=== PATIENT | male | born 1990 | race American Indian/Alaskan Native ===

== ENCOUNTER 2018-05-23 22:09 | Emergency (ER) | payer MEDICAID ==
[2018-05-23 23:32] LABS: Basophils # (Auto) 0.1 K/mm3 (0.0-0.1); Basophils % (Auto) 1.1 % (0.0-1.8); Eosinophils # (Auto) 0.3 K/mm3 (0.0-0.4); Eosinophils % (Auto) 3.9 % (0.0-4.3); Hematocrit 30.8 % (35.5-45.6); Lymphocytes % (Auto) 37.9 % (13.4-35.0); Mean Corpuscular HGB Conc 36 % (32-34); Mean Corpuscular Volume 91 fl (84-94); Monocytes # (Auto) 0.5 K/mm3 (0.0-0.8); Platelet Count 329 K/mm3 (140-440); Red Blood Count 3.41 M/mm3 (3.65-5.03)
[2018-05-23 23:40] LABS: BUN/Creatinine Ratio 20; Blood Urea Nitrogen 14 mg/dL (9-20); Calcium 9.1 mg/dL (8.4-10.2)
[2018-05-23 23:41] LABS: Bilirubin,Urine NEG (Negative); Blood,Urine NEG (Negative); Color,Urine Yellow (Yellow); Mucus,Urine FEW /HPF; Protein,Urine <15 mg/dL mg/dL (Negative); RBC,Urine < 1.0 /HPF (0.0-6.0); WBC,Urine < 1.0 /HPF (0.0-6.0)
[2018-05-23 23:41] LABS: Hemolysis Index 11
--- NOTE | 2018-05-23 23:47 | Emergency Department Report ---
ED Psych HPI - General Chief Complaint: Psych Stated Complaint: LT LEG PAIN MH Time Seen by Provider: 05/23/18 23:37 Source: patient Mode of arrival: Ambulatory - History of Present Illness Initial Comments: Mr. Gonsalves is a 27 yo male who presents via EMS with complaints of leg pain. When questioned by our nursing staff, he admits to SI. According to EMR, he has hx of homelessness, schizophrenia and SI. He gives very limited information to me. MD Complaint: suicidal ideation, feels depressed -: unknown Associated Psychiatric Symptoms: suicidal ideation History of same: Yes Quality: constant Improves With: none Worsens With: none Associated Symptoms: other (leg pain) Treatments Prior to Arrival: none If Self Harm: admits thoughts of - Related Data Home Medications Medication Instructions Recorded Confirmed Last Taken diphenhydrAMINE [Benadryl CAP] 50 mg PO QHS 12/20/12 03/23/15 03/22/15 risperiDONE [RisperDAL] 2 mg PO BID 12/20/12 05/23/18 03/22/15 Montelukast [Singulair] 10 mg PO QPM 04/25/13 05/23/18 03/22/15 traZODone [Desyrel] 50 mg PO QHS 12/09/14 05/23/18 03/22/15 Allergies Allergy/AdvReac Type Severity Reaction Status Date / Time latex Allergy Unknown Verified 12/08/14 21:21 soybean Allergy Hives Verified 03/23/15 23:18 chocolate flavor AdvReac Hives Verified 03/23/15 23:20 fried food Allergy Hives Uncoded 03/23/15 23:20 vegtable oil Allergy Hives Uncoded 03/23/15 23:20 ED Review of Systems ROS: Stated complaint: LT LEG PAIN MH Other details as noted in HPI Comment: Mr. Gonsalves will not answer questions. ED Past Medical Hx - Past Medical History Previous Medical History?: Yes Hx Psychiatric Treatment: Yes (depression, paronoia) Hx Asthma: Yes Additional medical history: schizophrenia, migraine - Surgical History Additional Surgical History: back surgery - Social History Smoking Status: Unknown if ever smoked Substance Use Type: None - Medications Home Medications: Home Medications Medication Instructions Recorded Confirmed Last Taken Type diphenhydrAMINE [Benadryl CAP] 50 mg PO QHS 12/20/12 03/23/15 03/22/15 History risperiDONE [RisperDAL] 2 mg PO BID 12/20/12 05/23/18 03/22/15 History Montelukast [Singulair] 10 mg PO QPM 04/25/13 05/23/18 03/22/15 History traZODone [Desyrel] 50 mg PO QHS 12/09/14 05/23/18 03/22/15 History ED Physical Exam - General Limitations: No Limitations General appearance: alert, in no apparent distress - Head Head exam: Present: atraumatic, normocephalic - Eye Eye exam: Present: normal appearance - ENT ENT exam: Present: mucous membranes moist - Neck Neck exam: Present: normal inspection - Respiratory Respiratory exam: Present: normal lung sounds bilaterally. Absent: respiratory distress, wheezes, rales, rhonchi - Cardiovascular Cardiovascular Exam: Present: regular rate, normal rhythm, normal heart sounds. Absent: systolic murmur, diastolic murmur, rubs, gallop - GI/Abdominal GI/Abdominal exam: Present: soft, normal bowel sounds. Absent: distended, tenderness, guarding, rebound - Rectal Rectal exam: Present: deferred - Extremities Exam Extremities exam: Present: normal inspection - Back Exam Back exam: Present: normal inspection - Neurological Exam Neurological exam: Present: alert, oriented X3 - Psychiatric Psychiatric exam: Present: flat affect, suicidal ideation - Skin Skin exam: Present: warm, dry, intact, normal color. Absent: rash ED Course Vital Signs 05/23/18 22:26 Temperature 98.2 F Pulse Rate 69 Respiratory 18 Rate Blood Pressure 114/74 O2 Sat by Pulse 100 Oximetry ED Medical Decision Making - Lab Data Result diagrams: 05/23/18 22:59 05/23/18 22:59 Laboratory Results - last 24 hr 05/23/18 05/23/18 05/23/18 22:22 22:59 22:59 WBC RBC Hgb Hct MCV MCH MCHC RDW Plt Count Lymph % (Auto) [place] % (Auto) Eos % (Auto) Baso % (Auto) Lymph # [place] # Eos # Baso # Seg Neutrophils % Seg Neutrophils # Sodium Potassium Chloride Carbon Dioxide Anion Gap BUN Creatinine Estimated GFR BUN/Creatinine Ratio Glucose POC Glucose 98 Calcium Urine Bilirubin Urine RBC (Auto) U Epithel Cells (Auto) Salicylates < 0.3 L Acetaminophen < 5.0 L Plasma/Serum Alcohol 05/23/18 05/23/18 05/23/18 22:59 22:59 22:59 WBC 8.0 RBC 3.41 L Hgb 11.0 L Hct 30.8 L MCV 91 MCH 32 MCHC 36 H RDW 13.0 L Plt Count 329 Lymph % (Auto) 37.9 H [place] % (Auto) 6.0 Eos % (Auto) 3.9 Baso % (Auto) 1.1 Lymph # 3.0 [place] # 0.5 Eos # 0.3 Baso # 0.1 Seg Neutrophils % 51.1 Seg Neutrophils # 4.1 Sodium 139 Potassium 3.2 L Chloride 101.8 Carbon Dioxide 25 Anion Gap 15 BUN 14 Creatinine 0.7 L Estimated GFR > 60 BUN/Creatinine Ratio 20 Glucose 106 H POC Glucose Calcium 9.1 Urine Bilirubin Urine RBC (Auto) U Epithel Cells (Auto) Salicylates Acetaminophen Plasma/Serum Alcohol < 0.01 05/23/18 23:08 WBC RBC Hgb Hct MCV MCH MCHC RDW Plt Count Lymph % (Auto) [place] % (Auto) Eos % (Auto) Baso % (Auto) Lymph # [place] # Eos # Baso # Seg Neutrophils % Seg Neutrophils # Sodium Potassium Chloride Carbon Dioxide Anion Gap BUN Creatinine Estimated GFR BUN/Creatinine Ratio Glucose POC Glucose Calcium Urine Bilirubin Neg Urine RBC (Auto) < 1.0 U Epithel Cells (Auto) < 1.0 Salicylates Acetaminophen Plasma/Serum Alcohol - Medical Decision Making Mr. Gonsalves presents with leg pain without reported injury. He admits to SI. Awaiting recommendations by psychiatric team. Mr. Gonsalves is medically clear for psychiatric care. He does not indicate a plan to harm himself or others. Critical care attestation.: If time is entered above; I have spent that time in minutes in the direct care of this critically ill patient, excluding procedure time. ED Disposition Clinical Impression: Leg pain, Schizophrenia, Suicidal ideation Disposition: DC-01 TO HOME OR SELFCARE Is pt being admited?: No Does the pt Need Aspirin: No Condition: Stable Instructions: Depression (ED) Referrals: PRIMARY CARE, [Primary Care Provider] - 3-5 Days
[2018-05-23 23:59] LABS: Amphetamine Screen,Urine PRESUMPTIVE NEGATIVE; Benzodiazepines Screen,Urine PRESUMPTIVE NEGATIVE; Cocaine Screen,Urine PRESUMPTIVE NEGATIVE; Methadone Screen,Urine PRESUMPTIVE NEGATIVE; Opiate Screen,Urine PRESUMPTIVE NEGATIVE
[2018-05-24 00:26] LABS: Cannabinoid Screen,Urine PRESUMPTIVE POSITIVE
[2018-05-24] MEDS ORDERED: K-DUR PO ONE (02:33)
--- NOTE | 2018-05-24 10:15 | Consultation ---
History of Present Illness - Reason for Consult Consult date: 05/24/18 Reason for consult: Mental Health Evaluation Requesting physician: GABBY MILLIGAN - Chief Complaint Chief complaint: "I'm here fro leg pain" - History of Present Psychiatric Illness 27 y.o. AA male who presented to the ER for SI's and AH's. Today the patient is calm, but disorganized during the assessment. He stated that he came to the ER for leg pain. He was asked about his pain, his answers were not logical. The patient seem preoccupied throughout the interview. He pause for several seconds before he attempt to answer questions. He was asked about his mental health, he replied, "I get the Invega shot." He stated that he got the monthly injection early last month apr 2018. He stated that he was a patient at several mental health hospitals when asked. He would not confirm or deny SI's and AH's. He denies HI's and VH"s. He denies erratic sleep and a poor appetite. He denies recreational drug use, but he was positive for marijuana. He denies alcohol consumption (etoh). Medications and Allergies Allergies Allergy/AdvReac Type Severity Reaction Status Date / Time latex Allergy Unknown Verified 12/08/14 21:21 soybean Allergy Hives Verified 03/23/15 23:18 chocolate flavor AdvReac Hives Verified 03/23/15 23:20 fried food Allergy Hives Uncoded 03/23/15 23:20 vegtable oil Allergy Hives Uncoded 03/23/15 23:20 Home Medications Medication Instructions Recorded Confirmed Last Taken Type diphenhydrAMINE [Benadryl CAP] 50 mg PO QHS 12/20/12 05/24/18 03/22/15 History risperiDONE [RisperDAL] 2 mg PO BID 12/20/12 05/23/18 03/22/15 History Montelukast [Singulair] 10 mg PO QPM 04/25/13 05/23/18 03/22/15 History traZODone [Desyrel] 50 mg PO QHS 12/09/14 05/23/18 03/22/15 History Past psychiatric history - Past Medical History Past Medical History: No medical history Past Surgical History: No surgical history - past Psychiatric treatment and history psychiatric treatment history: Several inpatient psy settings. Unable to obtain a [facility]. - Social History Social history: lives with family Mental Status Exam - Vital signs Last Vital Signs Temp 98 F 05/23/18 23:00 Pulse 72 05/23/18 23:00 Resp 18 05/23/18 23:00 BP 120/62 05/23/18 23:00 Pulse Ox 98 05/23/18 23:00 - Exam Narrative exam: MSE: Appearance: calm Behavior: regular eye contact Speech: regular rate with loud tone Mood:: preoccupied Affect: constricted Thought Process: disorganized Thought Content: denies HI's and VH's, paranoia Motor Activity: ambulatory Cognition: A/O x3 Insight: poor Judgment: poor I Results Result Diagrams: 05/23/18 22:59 05/23/18 22:59 Abnormal lab results 05/23/18 05/23/18 05/23/18 Range/Units 22:59 22:59 22:59 RBC (3.65-5.03) M/mm3 Hgb (11.8-15.2) gm/dl Hct (35.5-45.6) % MCHC (32-34) % RDW (13.2-15.2) % Lymph % (Auto) (13.4-35.0) % Potassium 3.2 L (3.6-5.0) mmol/L Creatinine 0.7 L (0.8-1.5) mg/dL Glucose 106 H (75-100) mg/dL Salicylates < 0.3 L (2.8-20.0) mg/dL Acetaminophen < 5.0 L (10.0-30.0) ug/mL 05/23/18 Range/Units 22:59 RBC 3.41 L (3.65-5.03) M/mm3 Hgb 11.0 L (11.8-15.2) gm/dl Hct 30.8 L (35.5-45.6) % MCHC 36 H (32-34) % RDW 13.0 L (13.2-15.2) % Lymph % (Auto) 37.9 H (13.4-35.0) % Potassium (3.6-5.0) mmol/L Creatinine (0.8-1.5) mg/dL Glucose (75-100) mg/dL Salicylates (2.8-20.0) mg/dL Acetaminophen (10.0-30.0) ug/mL All other labs normal. Assessment and Plan Assessment and plan: Impression: Unspecified Psychosis. Cannabis Use DO. Today the patient is calm, but disorganized during the assessment. DDx: Schizophrenia, Bipolar DO, Schzoaffective DO Recommendation/Plan: Initiate 1013. Start Invega 3 mg PO daily for psychosis and Cogentin 0.5 mg PO daily for EPS preventon. Discussed possible metabolic side effects of Invega with the patient. Disp:The patient was referred to inpatient psy services. Will staff with Dr. Nellie Waite.
[2018-05-24] MEDS ORDERED: INVEGA PO SCH (11:00)
[2018-05-24] MEDS ORDERED: COGENTIN PO SCH (11:00)
[2018-05-24 21:01] VITALS: BP 114/69
== END 2018-05-24 23:47 | disposition home or self-care (01) ==
LOC: EEVIPCON 22:09 → ED 22:09
DX: F20.0 Paranoid schizophrenia (principal); F32.9 Major depressive disorder, single episode, unspecified; J45.909 Unspecified asthma, uncomplicated; G43.909 Migraine, unspecified, not intractable, without status migrainosus; Z59.0 Homelessness; Z91.040 Latex allergy status; Z91.018 Allergy to other foods
CPT/HCPCS: 36415; 80048; 80307; 81001; 82962; 85025; 99285; G0480; 80320